=== PATIENT | male | born 1945 | race Hispanic/Latino ===

== ENCOUNTER 2018-04-18 08:22 | Day surgery (SDC) | payer MEDICARE, BC ==
[2018-04-18] MEDS ORDERED: Sodium Chloride 0.9% 1,000 ML IV SCH (10:15)
[2018-04-18] MEDS ORDERED: Propofol 10 mg/ml Inj (20 ML) ONE (11:02)
[2018-04-18 12:23] VITALS: RESP 16; O2SAT 97
[2018-04-18 12:57] VITALS: PULSE 62; TEMP 97.8
[2018-04-18 13:48] VITALS: BP 128/68
== END 2018-04-18 13:45 | disposition home or self-care (01) ==
LOC: ENDO 08:22
PROVIDERS: ATTEND Internal Medicine Gastroenterology
DX: K21.0 Gastro-esophageal reflux disease with esophagitis (principal); K31.7 Polyp of stomach and duodenum; D12.5 Benign neoplasm of sigmoid colon; K44.9 Diaphragmatic hernia without obstruction or gangrene; K22.2 Esophageal obstruction; K29.70 Gastritis, unspecified, without bleeding; K29.80 Duodenitis without bleeding; K57.30 Diverticulosis of large intestine without perforation or abscess without bleeding; K64.1 Second degree hemorrhoids; K62.5 Hemorrhage of anus and rectum; I10 Essential (primary) hypertension; N40.0 Benign prostatic hyperplasia without lower urinary tract symptoms; E78.5 Hyperlipidemia, unspecified; Z86.010 Personal history of colon polyps
CPT/HCPCS: 43239; 45380; 45385; 88305; 88312; 88342; J2001; J2704; J7030